=== PATIENT | male | born 1935 | race Hispanic/Latino ===

== ENCOUNTER 2017-08-03 06:21 | Day surgery (SDC) | payer MEDICARE ==
[2017-07-31 15:30] VITALS: BP 133/67
[2017-07-31 15:56] LABS: BASOPHILS % (AUTO) 0.5 % (0.0-5.0); EOSINOPHILS % (AUTO) 5.3 % (0.0-8.0); HEMATOCRIT 28.5 % (42-54); LYMPHOCYTES % (AUTO) 22.3 % (21.0-51.0); MEAN CORPUSCULAR HGB CONC 33.3 g/dL (32.0-36.0); MEAN CORPUSCULAR VOLUME 93.1 fL (79-99); MONOCYTES % (AUTO) 8.6 % (3.0-13.0); NEUTROPHILS % (AUTO) 63.3 % (40.0-77.0); PLATELET COUNT (AUTO) 255 K/uL (130-400); RED BLOOD CELL COUNT(AUTO) 3.06 MIL/uL (4.50-6.20); RED CELL DISTRIBUTION WIDTH 22.3 % (11.0-15.5)
[2017-07-31 16:08] LABS: INR 1.03 (0.85-1.15); PARTIAL THROMBOPLASTIN TIME 25.3 SEC (26.3-35.5); PROTHROMBIN TIME 10.8 SEC (9.6-11.6)
[2017-07-31 16:14] LABS: CREATININE 1.7 mg/dL (0.5-1.5); POTASSIUM 4.4 mmol/L (3.5-5.1)
[2017-07-31 17:06] LABS: APPEARANCE,URINE CLOUDY (CLEAR); BILIRUBIN,URINE NEGATIVE (NEGATIVE); COLOR,URINE YELLOW (YELLOW); GLUCOSE, URINE (UA) NEGATIVE (NEGATIVE); KETONES,URINE NEGATIVE (NEGATIVE); LEUKOCYTE ESTERASE ,URINE SMALL (NEGATIVE); NITRATE,URINE NEGATIVE (NEGATIVE); OCCULT BLOOD,URINE LARGE (NEGATIVE); PROTEIN,URINE 100 (NEGATIVE); UROBILINOGEN,URINE 0.2 mg/dL (0.2-1.0)
[2017-07-31 17:12] LABS: RBC,URINE 26-50 /HPF (0-1)
[2017-07-31 17:13] LABS: BACTERIA,URINE Few /HPF (None Seen); COARSE GRANULAR CASTS,URINE 0-2 /LPF (None Seen); MUCUS,URINE Rare LPF (None Seen); SQUAMOUS EPITHELIAL CELL,UR Rare /HPF (0-2)
[2017-07-31 17:14] LABS: AMORPHOUS SEDIMENT,UR Rare /LPF (None Seen)
[~2017-08-03] VITALS: Ht 170.2 cm; Wt 96.6 kg
[2017-08-03] VITALS (16 sets, daily range): BP systolic 114–162; BP diastolic 63–85
[~2017-08-03 06:21] MED LIST: GENTAMICIN 80 MG/NS 100 ML PB 100 ML IV PRN; LINA145C PO; PANT20TA12 PO; PIND10TA2 PO; TRAM50TA4 PO; ferrous sulfate PO
[2017-08-03] MEDS ORDERED: LACTATED RINGERS 1000ML 1,000 ML IV ONE (07:25)
[2017-08-03] MEDS ORDERED: ONDANSETRON HCL MDV 20ML 2 MG/ML VIAL ONE (07:35)
[2017-08-03] MEDS ORDERED: SODIUM CHLORIDE 0.9% 10 ML VIAL ONE (07:35)
[2017-08-03] MEDS ORDERED: PHENYLEPHRINE HCL 10 MG/ML 1ML VIAL IV ONE (07:35)
[2017-08-03] MEDS ORDERED: LIDOCAINE PF 2% 5ML ABBOJECT ONE (07:35)
[2017-08-03] MEDS ORDERED: ROCURONIUM BROMIDE 10MG/1ML 5ML VL ONE (07:35)
[2017-08-03] MEDS ORDERED: FENTANYL CITRATE PF 50 MCG/1 ML 2ML VIAL ONE ×2 (07:36→09:28)
[2017-08-03] MEDS ORDERED: PROPOFOL 10 MG/ML 20ML VIAL IV ONE ×2 (07:36→09:48)
[2017-08-03] MEDS: CEFTRIAXONE SODIUM 1 GM IVP PRN ×2 (07:52→08:55)
[2017-08-03] MEDS ORDERED: NAPR-1023 PO (08:09)
[2017-08-03] MEDS ORDERED: CYCL10 PO (08:10)
[2017-08-03] MEDS ORDERED: NEOSTIGMINE 5MG/5ML SYR IV ONE (09:50)
[2017-08-03] MEDS ORDERED: GLYCOPYRROLATE 0.2 MG/ML 5 ML VIAL ONE (09:50)
== END 2017-08-03 12:05 | disposition home or self-care (01) ==
LOC: DAH 06:21
PROVIDERS: ATTEND Urology
DX: C61 Malignant neoplasm of prostate (principal); N40.1 Benign prostatic hyperplasia with lower urinary tract symptoms; R33.8 Other retention of urine; Z88.0 Allergy status to penicillin; K21.9 Gastro-esophageal reflux disease without esophagitis; D64.9 Anemia, unspecified; I11.0 Hypertensive heart disease with heart failure; I50.30 Unspecified diastolic (congestive) heart failure; K45.8 Other specified abdominal hernia without obstruction or gangrene
CPT/HCPCS: 36415; 52648; 71045; 80048; 81001; 85025; 85610; 85730; 87088; 87186; 88305; 93005; A4218; A4354; A4358; A4600; C1758; J0696; J1580; J2001; J2370; J2704 ×2; J2710; J3010 ×2; J3490 ×2; J7030; J7120

== ENCOUNTER → 2017-10-30 | Outpatient (CLI) | payer MEDICARE ==
[~2017-10-30] MED LIST changes: +CYCL10 PO; -GENTAMICIN 80 MG/NS 100 ML PB 100 ML IV PRN; +NAPR-1023 PO
== END | disposition home or self-care (01) ==
LOC: RAH 08:21
PROVIDERS: ATTEND Family Medicine
DX: C61 Malignant neoplasm of prostate (principal); N13.30 Unspecified hydronephrosis; N13.4 Hydroureter; K44.9 Diaphragmatic hernia without obstruction or gangrene; K76.89 Other specified diseases of liver; M51.35 Other intervertebral disc degeneration, thoracolumbar region; I11.0 Hypertensive heart disease with heart failure; I50.30 Unspecified diastolic (congestive) heart failure; E78.5 Hyperlipidemia, unspecified; M17.12 Unilateral primary osteoarthritis, left knee; K21.9 Gastro-esophageal reflux disease without esophagitis
CPT/HCPCS: 74176